=== PATIENT | female | born 1975 | race Caucasian/White ===

== ENCOUNTER 2016-06-11 13:01 | Emergency (ER) | payer SELFPAY ==
[~2016-06-11 13:01] MED LIST: ADVIL PO; AMB10 PO; ANUSOL-HC25 MG RE; ATV1 PO; B COMPLEX-C PO; BEN25 PO; BENADRYL OTC PO; BENTYL10 PO; BENTYL20 PO; CELEXA20 PO; CELEXA40 MG PO; CLARIT10 PO; COLON HEALTH PO; CYMBALTA30 PO; CYMBALTA60 PO; DIFICID 200 MG200 MG PO; DIL2TAB PO; ENDOCET1 TA3 PO; ESTRAVAN PO; ESTROVEN PO; FLORASTOR250 MG PO; HEMOCYTE324 MG PO; LEVSINTAB PO; LEVSINTAB SL; LIPOTRIAD1 CAP PO; LORTAB 5 PO; LYRICA75 PO; MARI5 PO; MOMUD PO; MULTIVITAMI1 PO; NORCO1 TA1 PO; NORCO1 TA2 PO; NORCO1 TAB PO; OXYCOD PO; OXYCON10 PO; PCET PO; PEPTO BISMOL LIQ1 ML PO; PERCOCET1 TA4 PO; PHILLIPS COLON HEALT PO; PR12.5 PO; PR25 PO; PRILO PO; PRILOSEC OTC20 MG PO; PRILOSEC40 MG PO; PROBIOTIC CAP PO; PROBIOTIC CAPSULES PO; PROTONIX PO; QUESLITE PO; SUCR PO; T PO; TYLENOL OTC PO; VANC125UDL PO; VANCOCIN HCL125 MG PO; VANCOCIN HCL250 MG PO; VITAMIN B COMPLEX PO; VITAMIN B PO; VITAMIN B-121000 MC1 SL; VITAMIN D1000 UNI1 PO; VITS; XARELTO15 MG PO; ZANAFLEX 4 MG TA4 MG PO; ZANTAC150 MG PO; ZOCOR20 PO; ZOFRAN ODT4 MG PO; ZOFRAN4 PO; ZOFRAN8 PO; ZOFRANODT8 PO; [UNRECOGNIZED DRUG - OTHER] PO
[2016-06-11 13:18] LABS: ALBUMIN 3.9 G/DL (3.5-5.0); ALKALINE PHOSPHATASE 88 U/L (45-117); CALCIUM, SERUM 9.3 MG/DL (8.5-10.4); CHLORIDE, SERUM 107 MMOL/L (96-112); CO2 (CARBON DIOXIDE) 25 MMOL/L (24-34); CREATININE 0.99 MG/DL (0.55-1.02); GFR AFRICAN AMERICAN 82 ML/MIN (>=60); GFR NON AFRICAN AMERICAN 71 ML/MIN (>=60); GLOBULIN 4.1 G/DL (2.5-4.1); GLUCOSE, SERUM 90 MG/DL (60-99); POTASSIUM, SERUM 4.5 MMOL/L (3.5-5.3); SGOT(AST) 24 U/L (5-40); SGPT(ALT) 22 U/L (5-65); SODIUM, SERUM 139 MMOL/L (135-148); TOTAL BILIRUBIN 0.2 MG/DL (0-1.2)
[2016-06-11 13:20] LABS: BUN (BLOOD UREA NITROGEN) 14 MG/DL (6-23)
[2016-06-11 13:34] LABS: ASCORBIC ACID (UR NOT ORDER) NEG (NEG); BILIRUBIN, URINE NEGATIVE (NEG); ER URINALYSIS TAT 0 Hrs 07 Mins; KETONE, URINE NEGATIVE (NEG); LEUKOCYTE ESTERASE(NOT OR NEG (NEG); NITRITE (URINE) NEG (NEG); WBC (NOT ORDERED) (RFLEX) < 1 (0-5)
[2016-06-11] MEDS ORDERED: SUCR PO (13:36)
[2016-06-11] MEDS ORDERED: PROTONIX PO (13:36)
[2016-06-11] MEDS ORDERED: ZOFRAN8 PO (13:37)
[2016-06-11] MEDS ORDERED: PROBIOTIC PO (13:37)
[2016-06-11] MEDS ORDERED: PR25 PO (13:37)
[2016-06-11] MEDS ORDERED: ATV1 PO (13:38)
[2016-06-11] MEDS ORDERED: NEUR300 PO (13:38)
[2016-06-11] MEDS ORDERED: MACROBID PO (13:39)
[2016-06-11] MEDS ORDERED: BEN25 PO (13:39)
[2016-06-11 15:43] LABS: BASOPHILS 0.2 %; BASOPHILS ABSOLUTE 0.01 10/3/uL (0.0-0.16); EOSINOPHILS 0.8 %; EOSINOPHILS ABSOLUTE 0.05 10/3/uL (0.0-0.53); ER CBC TAT 0 Hrs 05 Mins; HEMATOCRIT 36.3 % (36.0-48.0); HEMOGLOBIN 11.6 g/dL (12.0-16.0); IMMATURE GRANULOCYTES 0.2 %; IMMATURE GRANULOCYTES ABSOLUTE 0.01 10/3/uL (0.0-0.11); LYMPHOCYTES 27.8 %; LYMPHOCYTES ABSOLUTE 1.68 10/3/uL (0.67-4.30); MEAN CORPUSCULAR HEMOGLOB 26.6 pg (26.0-34.0); MEAN CORPUSCULAR VOLUME 83.3 fL (80-100); MEAN PLATELET VOLUME 9.7 fL (9.2-13.0); MONOCYTES 4.8 %; MONOCYTES ABSOLUTE 0.29 10/3/uL (0.21-1.20); NEUTROPHILS 66.2 %; PLATELET COUNT 226 10/3/uL (150-400); RBC DISTRIBUTION WIDTH 14.2 % (12.0-16.0); RED CELL COUNT 4.36 10/6/uL (4.0-5.6)
[2016-06-11 15:50] LABS: MANUAL DIFF NO %
[2016-06-11 15:54] LABS: INTERNATIONAL NORMAL RATI 1.1 UNITS (-); PARTIAL THROMBO TIME 26.9 SEC (22.5-37.2); PROTIME (NOT ORD) 13.7 SEC (12.0-14.5)
[2016-06-11 16:12] LABS: PLATELET ESTIMATE ADQ (ADEQUATE); RBC MORPHOLOGY NORM (NORMAL)
== END 2016-06-11 20:12 | disposition home or self-care (01) ==
LOC: ER 13:01
PROVIDERS: Physician Assistant
DX: K92.2 Gastrointestinal hemorrhage, unspecified (principal); J44.9 Chronic obstructive pulmonary disease, unspecified; I10 Essential (primary) hypertension; K21.9 Gastro-esophageal reflux disease without esophagitis; F41.9 Anxiety disorder, unspecified; Z87.442 Personal history of urinary calculi; F17.200 Nicotine dependence, unspecified, uncomplicated; Z85.51 Personal history of malignant neoplasm of bladder; Z90.710 Acquired absence of both cervix and uterus; Z88.6 Allergy status to analgesic agent; Z88.5 Allergy status to narcotic agent; Z88.8 Allergy status to other drugs, medicaments and biological substances; Z79.899 Other long term (current) drug therapy
CPT/HCPCS: 36415; 74176; 80053; 81001; 83690; 85025; 85610; 85730; 86850; 86900; 86901; 93005; 96365; 96366; 96372; 96375; 96376; 99285; C9113; J1170; J2405; J2550; J2800

== ENCOUNTER 2016-06-12 14:36 | Inpatient (IN) | payer SELFPAY ==
--- NOTE | ~2016-06-12 | HP ---
History And Physical [address] [place]. [address] NAME: MAXINE WARD : [birth year] STATUS : ADM IN [facility]#: [id number] AGE: 40 ADM/REG DATE : 06/12/16 MR#: [id number] REPORT SERV DATE: 06/14/16 DICTATED BY: SHAHEED RUIZ DATE: 06/13/16 REPORT STATUS : Draft TRANSCRIBED BY: MODAletha DATE: 06/13/16 DATE OF ADMISSION: 06/12/2016 REASON FOR ADMISSION: Abdominal pain, intractable nausea and vomiting. HISTORY OF PRESENT ILLNESS: The patient is a 40-year-old female, COPD, peptic ulcer disease, pancreatitis, interstitial lung disease with episodes of C diff in the past requiring stool transplant x3. Presented to the emergency department on 06/12, with nausea, vomiting, and abdominal pain for 3 days. She had regular vomiting that was of the stomach contents followed by bilious emesis followed by streaks of blood now all blood of relatively small volume, but bright in color. She had a previous Laura-Person tear with similar presentation. The patient says her pain in the mid abdomen radiating to her back. It feels like prior episodes of pancreatitis. She has been diagnosed with pancreas divisum in the past. The patient denies any diarrhea, no weight change. No other pain or headache, chest pain. No leg pain or leg swelling. No fever or chills. No other bleeding. Remainder of the review of systems are negative. PAST MEDICAL HISTORY: As mentioned above. History of hysterectomies, salpingo-oophorectomy, cholecystectomy, history of bladder cancer status post BCG therapy, she had a history of deep venous thrombosis. MEDICATIONS: Include, Benadryl, Neurontin, Ativan,Macrobid, Zofran, and Protonix. ALLERGIES: REGLAN, IODINE, AND ASPIRIN. FAMILY HISTORY: Positive for cancer in multiple relatives. SOCIAL HISTORY: The patient is an active smoker. PHYSICAL EXAMINATION: VITAL SIGNS: On presentation, blood pressure 136/67, pulse 97, respiration 18, afebrile, saturating 99.1%. GENERAL: Awake, alert, and oriented x3. HEENT: Dry mucous membranes. Normal oropharynx. NECK: Without jugular venous distention, carotid bruits, lymphadenopathy, or goiter. CARDIAC: Regular rate and rhythm. No murmurs, gallops, or rubs. LUNGS: Clear to auscultation bilaterally. Good excursion. ABDOMEN: Epigastric tenderness. Otherwise, nondistended, nontender, bowel sounds normoactive. GENITOURINARY: There was blood in the emesis bag. EXTREMITIES: No cyanosis, clubbing, or edema. Good pulses and capillary refill. NEUROLOGIC: Normal sensory and motor function in all four extremities. SKIN: Warm and dry. PSYCHIATRIC: She is appropriate. LABORATORY EVALUATIONS: Sodium 141, potassium 4.4, chloride 102, bicarb 20, BUN 14, History And Physical [address] [place]. [address] NAME: MAXINE WARD : [birth year] STATUS : ADM IN [facility]#: [id number] AGE: 40 ADM/REG DATE : 06/12/16 MR#: [id number] REPORT SERV DATE: 06/14/16 DICTATED BY: SHAHEED RUIZ DATE: 06/13/16 REPORT STATUS : Draft TRANSCRIBED BY: MODL DATE: 06/13/16 creatinine 1.0. Glucose 93, white count 7000, . CT of the abdomen was negative. ASSESSMENT/PLAN: 1. Probable acute recurrent pancreatitis with intractable nausea, vomiting, as a result of subsequent a Laura-Person tear. IV fluids, analgesics, proton pump inhibitor, GI will see her regarding an EGD. We will check [place] criteria in 48 hours. 2. COPD with interstitial lung disease. Appears stable. 3. History of bladder cancer appears stable. 4. History of anxiety state also appear stable. RSM/MARUL Shaheed Ruiz M.D. / [id number] CC: Ofelia Barragan DO
--- NOTE | ~2016-06-12 | EGD ---
EGD REPORT [facility] [address] [place]. [address] NAME: ANGELA POWERS : 73 STATUS : ADM IN PAT#: [id number] AGE: 40 ADM/REG DATE : 06/12/16 MR#: [id number] REPORT SERV DATE: 06/13/16 DICTATED BY: ELIA EGAN DATE: 06/13/16 REPORT STATUS : Draft [facility]ANSCRIBED BY: [facility] DATE: 06/13/16 Endoscopy Center Patient Name: Angela Powers Date of : 1975 Attending MD: ELIA EGAN MD Procedure Date No Time: 06/13/2016 Procedure: Upper GI endoscopy Indications: Hematemesis; protonix 40mg bid. Patient Profile: Informed consent was obtained from the patient by me prior to the procedure. Risks, benefits, and alternatives were discussed including the risk of bleeding, perforation, infection, reaction to medicine, missed lesion, and cardiopulmonary complications. Referring MD: EDGAR ORNELAS Medicines: Monitored Anesthesia Care Complications: No immediate complications. Procedure: Pre-Anesthesia Assessment: - ASA Grade Assessment: III - A patient with severe systemic disease. After obtaining informed consent, the endoscope was passed under direct vision. Throughout the procedure, the patient's blood pressure, pulse, and oxygen saturations were monitored continuously. The GIF [id number] was introduced through the mouth, and advanced to the second part of duodenum. The endoscope was withdrawn with careful examination all mucosal surfaces including retroflexion stomach. The upper GI endoscopy was accomplished without difficulty. The patient tolerated the procedure well. Findings: The examined duodenum was normal. Two linear gastric ulcers with no stigmata of bleeding were found in the gastric body. The largest lesion was 10 mm in largest dimension. Biopsies were taken with a cold forceps for histology. Localized mild inflammation was found in the cardia. Biopsies were taken with a cold forceps for histology. The gastric fundus and gastric antrum were normal. The examined esophagus was normal. The esophagus and gastroesophageal junction were examined with white light. There was no visual evidence of Matthews's esophagus. Impression: - Normal examined duodenum. - Gastric ulcers. Biopsied. - Gastritis. Biopsied. EGD REPORT [address] [address] NAME: ANGELA POWERS : [birth year] STATUS : ADM IN PAT#: [id number] AGE: 40 ADM/REG DATE : 06/12/16 MR#: [id number] REPORT SERV DATE: 06/13/16 DICTATED BY: ELIA EGAN DATE: 06/13/16 REPORT STATUS : Draft TRANSCRIBED BY: [employer] DATE: 06/13/16 - Normal gastric fundus and antrum. - Normal esophagus. - There is no endoscopic evidence of Matthews's esophagus. Recommendation: - Regular diet today. - Continue present medications. - Await pathology results. - Check gastrin level. - Advance diet. Procedure Code(s): --- Professional --- 19204, Esophagogastroduodenoscopy, flexible, transoral; with biopsy, single or multiple Diagnosis Code(s): --- Professional --- K25.9, Gastric ulcer, unspecified as acute or chronic, without hemorrhage or perforation K29.70, Gastritis, unspecified, without bleeding K92.0, Hematemesis CPT copyright 2013 [employer]. All rights reserved. The codes documented in this report are preliminary and upon surgical coder review may be revised to meet current compliance requirements. ELIA EGAN MD 06/13/2016 11:50 AM This report has been signed electronically. Number of Addenda: 0 Note Initiated On: 06/13/2016 11:10 AM Scope Withdrawal Time 0 hours 0 minutes 0 seconds [address] [place] [address]
--- NOTE | ~2016-06-12 | CN ---
Consultation Report [facility] [address] [place]. [address] NAME: MAXINE WARD : [birth year] STATUS : ADM IN [facility]#: [id number] AGE: 40 ADM/REG DATE : 06/12/16 MR#: [id number] REPORT SERV DATE: 06/13/16 DICTATED BY: JEFFREY HART DATE: 06/13/16 REPORT STATUS : Draft TRANSCRIBED BY: MODAletha DATE: 06/13/16 GI CONSULT DATE OF CONSULTATION: 06/13/2016 CHIEF COMPLAINT: Hematemesis. HISTORY OF PRESENT ILLNESS: This is a 40-year-old woman who presented to the emergency room with low volume intermittent hematemesis. She started with intermittent epigastric pain about 5 days ago then had numerous episodes of retching without blood, followed by hematemesis as stated above. She has had no melena. She has had normal daily brown bowel movements. No lower abdominal pain. Previous EGD, 06/2015 showed duodenal ulcer and Ashley class A esophagitis. Previous colonoscopy 10/2014 showed rectal ulcerations. No recent NSAIDs. PAST MEDICAL HISTORY: History of C. diff colitis, UTI, thymoma, Langerhans histiocytosis, gastroparesis. ALLERGIES: INCLUDE REGLAN, IV CONTRAST, NSAIDS, TRAMADOL, SERTRALINE. MEDICATIONS: At home include Benadryl, Neurontin, Ativan, Macrobid, Zofran, Protonix 40 mg twice daily, Phenergan, Carafate, probiotic. FAMILY HISTORY: Remarkable for colorectal cancer in numerous second-degree relatives. SOCIAL HISTORY: She does not use alcohol or tobacco significantly. REVIEW OF SYSTEMS: A complete review of systems was obtained and negative except that noted in the history of present illness. PHYSICAL EXAMINATION: VITAL SIGNS: She is currently afebrile. Temperature is 98.6, pulse 80, respirations 17, blood pressure 137/60. EYES: Sclerae anicteric. NECK: Supple without lymphadenopathy. Pharynx is pink without exudate. LUNGS: Clear to auscultation bilaterally. HEART: Regular rate and rhythm. S1 and S2 heard without rubs or gallops. ABDOMEN: Normal bowel sounds. Belly is soft, nontender, nondistended without hepatosplenomegaly. EXTREMITIES: No pedal edema, rash. NEUROLOGIC: Alert and oriented without focal deficit. Muscle exam is nontender. DATA: White blood cell count 7.1, hematocrit initially 37.5, now 30.0, MCV 84.8, platelets Consultation Report [facility] [place]. [address] NAME: MAXINE WARD : [birth year] STATUS : ADM IN PAT#: [id number] AGE: 40 ADM/REG DATE : 06/12/16 MR#: [id number] REPORT SERV DATE: 06/13/16 DICTATED BY: JEFFREY HART DATE: 06/13/16 REPORT STATUS : Draft TRANSCRIBED BY: MODL DATE: 06/13/16 284. INR 1.0. BUN is 14, creatinine 0.97. Liver tests are normal. Amylase and lipase essentially normal. Urinalysis is essentially negative. CT scan of abdomen and pelvis negative except cholecystectomy and hysterectomy. IMPRESSION: 1. Hematemesis following multiple bouts of retching, question Laura-Person tear versus other. 2. Epigastric pain. RECOMMENDATIONS: 1. Continue Protonix. 2. Monitor hematocrit and transfuse as necessary. 3. EGD to follow. CC/JENNIFER Jeffrey Hart M.D. / [id number] CC: Ofelia Barragan DO
--- NOTE | ~2016-06-12 | DS ---
Discharge Summary [address] [place]. [address] NAME: MAXINE WARD : [birth year] STATUS : DIS IN PAT#: [id number] AGE: 40 ADM/REG DATE : 06/12/16 MR#: [id number] REPORT SERV DATE: 06/15/16 DICTATED BY: JIMMY RUIZ DATE: 06/14/16 REPORT STATUS : Draft TRANSCRIBED BY: MODL DATE: 06/14/16 ADMISSION DATE: 06/12/2016 DISCHARGE DATE: 06/14/2016 PRINCIPAL DIAGNOSES: 1. Peptic ulcer disease. 2. Upper gastrointestinal bleed. 3. Epigastric pain. HISTORY OF PRESENT ILLNESS: Please see my dictation on 06/12/2016. HOSPITAL COURSE: Admitted with small volume hematemesis with epigastric tenderness radiating to her back. Hematocrits were unchanged. There was a concern about possibly recurrent pancreatitis that she has had episodes before, this felt similar; however, lipase was negative. She was hydrated, and received a Protonix drip. GI was consulted. EGD had revealed shallow gastric ulcers. Biopsies were negative for neoplasm or H-pylori. Gastrin level was sent, but would be at some period of time before it came back. The patient was actually feeling better. Her diet was advanced. Tenderness had been relieved. Her Dilaudid was changed to p.o. 2 mg q.4 p.r.n. Carafate and Protonix were given as well. She will follow up with Dr. Naseem Starkey, her primary provider, as an outpatient, and Dr. Hart in two to four weeks. Otherwise, diet is GI soft. Activity as tolerated. VON/JENNIFER Jimmy Ruiz M.D. / [id number] CC: Ofelia Barragan DO Chad Charapata, M.D.
[2016-06-12 13:22] LABS: BASOPHILS 0.1 %; BASOPHILS ABSOLUTE 0.01 10/3/uL (0.0-0.16); EOSINOPHILS 0.9 %; EOSINOPHILS ABSOLUTE 0.06 10/3/uL (0.0-0.53); HEMATOCRIT 37.5 % (36.0-48.0); HEMOGLOBIN 12.3 g/dL (12.0-16.0); IMMATURE GRANULOCYTES 0.1 %; IMMATURE GRANULOCYTES ABSOLUTE 0.01 10/3/uL (0.0-0.11); LYMPHOCYTES 23.4 %; LYMPHOCYTES ABSOLUTE 1.65 10/3/uL (0.67-4.30); MANUAL DIFF NO %; MEAN CORPUS HGB CONC 32.8 g/dL (32.0-36.0); MEAN CORPUSCULAR HEMOGLOB 27.8 pg (26.0-34.0); MEAN CORPUSCULAR VOLUME 84.8 fL (80-100); MEAN PLATELET VOLUME 9.3 fL (9.2-13.0); MONOCYTES 6.1 %; MONOCYTES ABSOLUTE 0.43 10/3/uL (0.21-1.20); NEUTROPHILS 69.4 %; NEUTROPHILS ABSOLUTE 4.89 10/3/uL (2.02-8.40); PLATELET COUNT 284 10/3/uL (150-400); RBC DISTRIBUTION WIDTH 13.9 % (12.0-16.0); RED CELL COUNT 4.42 10/6/uL (4.0-5.6); WHITE BLOOD CELLS 7.1 10/3/uL (4.5-10.5)
[2016-06-12 13:23] LABS: ASCORBIC ACID (UR NOT ORDER) NEG (NEG); BILIRUBIN, URINE NEGATIVE (NEG); ER URINALYSIS TAT 0 Hrs 11 Mins; KETONE, URINE NEGATIVE (NEG); NITRITE (URINE) NEG (NEG); WBC (NOT ORDERED) (RFLEX) 1 (0-5)
[2016-06-12 13:28] LABS: LEUKOCYTE ESTERASE(NOT OR TRACE (NEG)
[2016-06-12 13:38] LABS: ALBUMIN 3.9 G/DL (3.5-5.0); ALKALINE PHOSPHATASE 84 U/L (45-117); BUN (BLOOD UREA NITROGEN) 14 MG/DL (6-23); CALCIUM, SERUM 9.4 MG/DL (8.5-10.4); CHLORIDE, SERUM 107 MMOL/L (96-112); CO2 (CARBON DIOXIDE) 28 MMOL/L (24-34); CREATININE 0.97 MG/DL (0.55-1.02); GFR AFRICAN AMERICAN 84 ML/MIN (>=60); GFR NON AFRICAN AMERICAN 73 ML/MIN (>=60); GLOBULIN 4.1 G/DL (2.5-4.1); GLUCOSE, SERUM 93 MG/DL (60-99); POTASSIUM, SERUM 4.4 MMOL/L (3.5-5.3); SGOT(AST) 23 U/L (5-40); SGPT(ALT) 25 U/L (5-65); SODIUM, SERUM 141 MMOL/L (135-148); TOTAL BILIRUBIN 0.3 MG/DL (0-1.2)
[~2016-06-12 14:36] MED LIST changes: +MACROBID PO; +NEUR300 PO; +PROBIOTIC PO
[2016-06-12 14:50] LABS: PARTIAL THROMBO TIME 28.8 SEC (22.5-37.2); PROTIME (NOT ORD) 13.1 SEC (12.0-14.5)
[2016-06-12 19:43] LABS: HEMATOCRIT 36.9 % (36.0-48.0); HEMOGLOBIN 11.7 g/dL (12.0-16.0)
[2016-06-13 01:37] LABS: HEMOGLOBIN 9.8 g/dL (12.0-16.0)
[2016-06-13 08:02] LABS: BASOPHILS 0.2 %; BASOPHILS ABSOLUTE 0.01 10/3/uL (0.0-0.16); EOSINOPHILS 3.3 %; EOSINOPHILS ABSOLUTE 0.14 10/3/uL (0.0-0.53); HEMOGLOBIN 11.1 g/dL (12.0-16.0); IMMATURE GRANULOCYTES 0.2 %; IMMATURE GRANULOCYTES ABSOLUTE 0.01 10/3/uL (0.0-0.11); LYMPHOCYTES 48.7 %; LYMPHOCYTES ABSOLUTE 2.09 10/3/uL (0.67-4.30); MEAN CORPUS HGB CONC 33.2 g/dL (32.0-36.0); MEAN CORPUSCULAR VOLUME 84.3 fL (80-100); MEAN PLATELET VOLUME 9.9 fL (9.2-13.0); MONOCYTES 8.6 %; MONOCYTES ABSOLUTE 0.37 10/3/uL (0.21-1.20); NEUTROPHILS ABSOLUTE 1.67 10/3/uL (2.02-8.40); PLATELET COUNT 211 10/3/uL (150-400); RBC DISTRIBUTION WIDTH 13.8 % (12.0-16.0); RED CELL COUNT 3.96 10/6/uL (4.0-5.6); WHITE BLOOD CELLS 4.3 10/3/uL (4.5-10.5)
[2016-06-13 08:03] LABS: HEMATOCRIT 33.4 % (36.0-48.0)
[2016-06-13 08:06] LABS: MANUAL DIFF NO %
[2016-06-13 08:16] LABS: A/G RATIO 0.9 (0.7-1.9); ALBUMIN 3.2 G/DL (3.5-5.0); CALCIUM, SERUM 8.6 MG/DL (8.5-10.4); CHLORIDE, SERUM 113 MMOL/L (96-112); CO2 (CARBON DIOXIDE) 24 MMOL/L (24-34); CREATININE 0.95 MG/DL (0.55-1.02); GFR AFRICAN AMERICAN 86 ML/MIN (>=60); GFR NON AFRICAN AMERICAN 74 ML/MIN (>=60); GLOBULIN 3.4 G/DL (2.5-4.1); GLUCOSE, SERUM 83 MG/DL (60-99); SGOT(AST) 25 U/L (5-40); SGPT(ALT) 22 U/L (5-65); SODIUM, SERUM 145 MMOL/L (135-148); TOTAL BILIRUBIN 0.4 MG/DL (0-1.2); TOTAL PROTEIN 6.6 G/DL (6.0-8.5)
[2016-06-13 08:18] LABS: ALKALINE PHOSPHATASE 67 U/L (45-117); BUN (BLOOD UREA NITROGEN) 9 MG/DL (6-23)
[2016-06-13 08:43] LABS: PLATELET ESTIMATE ADQ (ADEQUATE); RBC MORPHOLOGY NORM (NORMAL)
[2016-06-13 13:27] LABS: HEMATOCRIT 34.4 % (36.0-48.0); HEMOGLOBIN 11.3 g/dL (12.0-16.0)
[2016-06-14 05:47] LABS: BASOPHILS 0.2 %; BASOPHILS ABSOLUTE 0.01 10/3/uL (0.0-0.16); EOSINOPHILS 2.7 %; EOSINOPHILS ABSOLUTE 0.12 10/3/uL (0.0-0.53); HEMATOCRIT 31.8 % (36.0-48.0); HEMOGLOBIN 10.3 g/dL (12.0-16.0); IMMATURE GRANULOCYTES 0.2 %; IMMATURE GRANULOCYTES ABSOLUTE 0.01 10/3/uL (0.0-0.11); LYMPHOCYTES 31.2 %; LYMPHOCYTES ABSOLUTE 1.38 10/3/uL (0.67-4.30); MEAN CORPUS HGB CONC 32.4 g/dL (32.0-36.0); MEAN CORPUSCULAR HEMOGLOB 27.1 pg (26.0-34.0); MEAN CORPUSCULAR VOLUME 83.7 fL (80-100); MEAN PLATELET VOLUME 10.2 fL (9.2-13.0); MONOCYTES 9.5 %; MONOCYTES ABSOLUTE 0.42 10/3/uL (0.21-1.20); NEUTROPHILS 56.2 %; NEUTROPHILS ABSOLUTE 2.48 10/3/uL (2.02-8.40); PLATELET COUNT 230 10/3/uL (150-400); WHITE BLOOD CELLS 4.4 10/3/uL (4.5-10.5)
[2016-06-14 05:49] LABS: MANUAL DIFF NO %
[2016-06-14 05:54] LABS: BUN (BLOOD UREA NITROGEN) 10 MG/DL (6-23); CALCIUM, SERUM 8.9 MG/DL (8.5-10.4); CHLORIDE, SERUM 108 MMOL/L (96-112); CO2 (CARBON DIOXIDE) 26 MMOL/L (24-34); CREATININE 1.15 MG/DL (0.55-1.02); GFR AFRICAN AMERICAN 68 ML/MIN (>=60); GFR NON AFRICAN AMERICAN 59 ML/MIN (>=60); GLUCOSE, SERUM 99 MG/DL (60-99); IRON, SERUM 44 MCG/DL (35-150); POTASSIUM, SERUM 4.2 MMOL/L (3.5-5.3); SODIUM, SERUM 143 MMOL/L (135-148)
[2016-06-14 05:55] LABS: % IRON SAT 12 % (20-50); FERRITIN 11 NG/ML (8-252); IRON BINDING CAPACITY 368 MCG/DL (225-410)
[2016-06-14] MEDS ORDERED: MARI5 PO (11:17)
[2016-06-14] MEDS ORDERED: DIL2TAB PO (11:17)
== END 2016-06-14 15:06 | disposition home or self-care (01) | DRG 378 ==
LOC: ER 14:36 → 4SO 16:55
PROVIDERS: Emergency Medicine; Internal Medicine; Internal Medicine Gastroenterology; Physician Assistant
PROC: 0DB68ZX Excision of Stomach, Via Natural or Artificial Opening Endoscopic, Diagnostic (ICD-10-PCS; principal; 2016-06-13 11:41)
DX: K27.4 Chronic or unspecified peptic ulcer, site unspecified, with hemorrhage (principal); J84.9 Interstitial pulmonary disease, unspecified; J44.9 Chronic obstructive pulmonary disease, unspecified; F41.9 Anxiety disorder, unspecified; F17.210 Nicotine dependence, cigarettes, uncomplicated; K92.2 Gastrointestinal hemorrhage, unspecified; K29.70 Gastritis, unspecified, without bleeding; K31.84 Gastroparesis; Z80.0 Family history of malignant neoplasm of digestive organs; Z88.6 Allergy status to analgesic agent; Z88.8 Allergy status to other drugs, medicaments and biological substances; Z85.51 Personal history of malignant neoplasm of bladder; Z98.890 Other specified postprocedural states; Z85.238 Personal history of other malignant neoplasm of thymus
CPT/HCPCS: 36415; 80048; 80053; 81001; 82150; 82728; 82941; 83540; 83550; 83615; 83690; 83735; 85014; 85018; 85025; 85610; 85730; 86850; 86900; 86901; 88305; 88342; 99285; A9270-GY; C9113; J1170; J2405; J2550

== ENCOUNTER 2016-06-25 16:14 | Observation (INO) | payer SELFPAY ==
--- NOTE | ~2016-06-25 | HP ---
History And Physical [place] [address] [facility] [place]. [address] NAME: MAXINE WARD : [birth year] STATUS : REG ER PAT#: [id number] AGE: 40 ADM/REG DATE : 06/25/16 MR#: [id number] REPORT SERV DATE: 06/25/16 DICTATED BY: ERIC VILLEGAS DATE: 06/25/16 REPORT STATUS : Draft TRANSCRIBED BY: MODAletha DATE: 06/25/16 DATE OF ADMISSION: 06/25/2016 CHIEF COMPLAINT: Abdominal pain with repeated episodes of hematemesis and now GI bleed with history of Laura-Person tear. HISTORY OF PRESENT ILLNESS: The patient is a very pleasant 40-year-old female who has had unfortunate but complex GI history including Laura-Person tears, C. diff colitis, pancreatitis, ulcers, followed under the care of Dr. Hart who had just recently been discharged for similar episodes, was doing fair, but this week was noted to have increasing nausea and vomiting and began vomiting blood but also started noting blood and dark stools. She was recently diagnosed with an ulcer and has been taking both Protonix and omeprazole as scheduled although she has had increased vomiting. Symptoms have been constant over the last few days but bleeding has been since yesterday, moderate severity with dull deep pain nonradiating associated with nausea, vomiting, and chills but no fever. No shortness of breath but generalized weakness. No diarrhea but does have dark stools. Symptoms are worsened by palpation and no relieving symptoms. The patient reports that in the past, she has required Dilaudid IV for pain control and p.o. Dilaudid which actually helps better than the IV form and symptoms typically start to greatly improved after having the Protonix drip IV. ADDITIONAL REVIEW OF SYSTEMS: GENERAL: Positive for chills but no fevers. EYES: No visual pain or changes. ENT: No ear pain or congestion. NEUROLOGIC: No headache or confusion. SKIN: No rashes or bruising. RESPIRATORY: No shortness of breath or cough. CV: No chest pain or palpitations. GI: Positive for nausea, vomiting, dark stools, hematemesis, and abdominal pain. : No dysuria or hematuria. MUSCULOSKELETAL: No myalgias or arthralgias. ENDOCRINE: Does have increased fatigue, but no polyuria. HEMATOLOGIC: No additional bleeding or bruising except from GI sources. IMMUNOLOGIC: No rhinorrhea. PSYCHIATRIC: No anxiety or confusion but does generally feel weak and tired of recurrent episodes. PAST MEDICAL HISTORY: COPD; hypertension; pain; irritable bowel syndrome; anxiety; chronic pancreatitis with history of pancreatic divisum; nephrolithiasis; peptic ulcer disease; esophageal ulcer; Laura-Person tear followed by Dr. Hart; bladder cancer status post BCG treatment [address] Macario; left upper extremity DVT; Langerhans histiocytosis; pulmonary nodules with pulmonary fibrosis; chronic interstitial lung disease followed by Dr. Peters; C. diff colitis with recurrence; history of fecal transplant; B12 deficiency; Klebsiella bacteremia; UTIs; and endometriosis. SURGICAL HISTORY: Thymoma; hysterectomy; oophorectomy; cholecystectomy; adhesiolysis; back History And Physical [address] [address] NAME: MAXINE WARD : [birth year] STATUS : REG ER PAT#: [id number] AGE: 40 ADM/REG DATE : 06/25/16 MR#: [id number] REPORT SERV DATE: 06/25/16 DICTATED BY: ERIC VILLEGAS DATE: 06/25/16 REPORT STATUS : Draft TRANSCRIBED BY: MODL DATE: 06/25/16 surgery; and right upper lung nodule surgery. ALLERGIES: REGLAN, IV CONTRAST, NSAIDS, TRAMADOL, ZOLOFT, AND ASPIRIN. SOCIAL HISTORY: Lives in [place]. Rare alcohol or illicits. Accompanied by mother who is at bedside. 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 Does have smoking history. FAMILY HISTORY: Colon cancer, bladder cancer, heart disease, and diabetes. CURRENT MEDICATIONS: Complete list still pending. PHYSICAL EXAMINATION: VITAL SIGNS: The patient's blood pressure is 112/65, temperature 98.6, pulse 102 down to 79, respirations 16, and O2 sats 100%. GENERAL: No acute distress but does look fairly fatigued, well developed, well nourished. EYES: No scleral icterus. EOMI. Pale conjunctivae. ENT: Nares patent. Tongue midline. Moist mucous membranes. RESPIRATORY: Clear to auscultation. No wheezes. CV: Regular rate. No rubs or gallops. No pedal edema. GI: Soft. Mild tenderness to palpation in mid epigastric. : Deferred. MUSCULOSKELETAL: Moves all extremities x4. SKIN: Warm, dry. LYMPH: No cervical or supraclavicular lymphadenopathy. HEME: No bleeding or bruising. NEUROLOGIC: Alert and oriented. Moves all extremities x4 but does look fairly weak and tired. PSYCHIATRIC: Appropriate mood and affect, pleasant. LAB DATA: Portable chest, no acute cardiopulmonary symptoms. BMP grossly within normal limits with mildly low bicarb at 21. Troponin negative. Lipase 297. Magnesium 2.3. Urinalysis, trace ketones, but negative leukocyte esterase and nitrites. WBC 5.8, H and H 11.8 and 36.5, and platelets 268. INR 1.0. ASSESSMENT: 1. Abdominal pain with symptomatic peptic ulcer disease. 2. Chronic obstructive pulmonary disease history. 3. Tachycardia. 4. Hematemesis with history of Laura-Person tear and ulcers. PLAN: 1. For abdominal pain with symptomatic peptic ulcer disease, PPI drip and pain control. Has had extensive workup in the past including gastrin levels, will add warfarin levels for additional completion of differential and we will ask GI for further evaluation in the presence of hematemesis and dark stools. 2. COPD. O2 and DuoNebs as needed. 3. Tachycardia. Treat underlying abdominal pain, IV fluids gently as the patient has had History And Physical [address] [address] NAME: MAXINE WARD : [birth year] STATUS : REG ER PAT#: [id number] AGE: 40 ADM/REG DATE : 06/25/16 MR#: [id number] REPORT SERV DATE: 06/25/16 DICTATED BY: ERIC VILLEGAS DATE: 06/25/16 REPORT STATUS : Draft TRANSCRIBED BY: MODL DATE: 06/25/16 decreased p.o. intake. 4. Hematemesis with Laura-Person tear. Check H and H serially. PPI drip. Hold PRBCs in case of transfusion requirements. All questions answered to the patient and mother at bedside. DDN/MODL Eric Villegas MD / [id number] CC: Naseem Starkey DO
--- NOTE | ~2016-06-25 | DS ---
Discharge Summary [facility] [address] [facility]. [address] NAME: MAXINE WARD : [birth year] STATUS : DIS [facility] PAT#: [id number] AGE: 40 ADM/REG DATE : 06/25/16 MR#: [id number] REPORT SERV DATE: 06/27/16 DICTATED BY: JORGE JORDAN DATE: 06/27/16 REPORT STATUS : Draft TRANSCRIBED BY: MODL DATE: 06/27/16 ADMISSION DATE: 06/25/2016 DISCHARGE DATE: 06/27/2016 DISCHARGE DIAGNOSES: 1. Reported hematemesis and melena with a normal esophagogastroduodenoscopy. 2. History of peptic ulcer disease and gastrointestinal bleeds. 3. Abdominal pain, with baseline chronic pain, on oral Dilaudid as an outpatient. 4. Chronic obstructive pulmonary disease. 5. Seeking behaviors. CONSULTS: GI. PROCEDURE: EGD on 06/26/2016, that was essentially negative. HOSPITAL COURSE: This is a 40-year-old lady with history of peptic ulcer disease and GI bleed who presented to the hospital with complaints of hematemesis and melena. The patient was admitted and GI consultation was requested. The patient had an EGD done which was essentially negative. Throughout the hospital stay, the patient remained hemodynamically stable. The patient was admitted with hemoglobin of 12 which had declined to 10 after IV fluids and it remained stable at 10. The patient is now being discharged home with close outpatient followup instructions. Of note, the patient does have chronic pain syndrome and she takes p.o. Dilaudid at home. The patient did exhibit some pain seeking behaviors, hence for expedited discharge as soon as it is felt safe to do so. DISCHARGE MEDICATIONS: No changes. DISPOSITION: Home. FOLLOWUP: Please follow up with PCP in the next one to two weeks. Total of 20 minutes spent in coordinating this patient's discharge today. DAYNE/JENNIFER Jorge Jordan MD / [id number] CC: Jorge Jordan MD
--- NOTE | ~2016-06-25 | CN ---
Consultation Report [facility] [address] [place]. [address] NAME: MAXINE POWERS : 73 STATUS : [facility] PAT#: [id number] AGE: 40 ADM/REG DATE : 06/25/16 MR#: [id number] REPORT SERV DATE: 06/26/16 DICTATED BY: ANUP HERRING DATE: 06/26/16 REPORT STATUS : Draft TRANSCRIBED BY: MODL DATE: 06/26/16 GI CONSULTATION DATE OF CONSULTATION: 06/26/2016 REASON FOR CONSULTATION: Evaluation and management of upper GI bleeding. HISTORY OF PRESENT ILLNESS: Ms. Powers is a 40-year-old female patient, known to our group, who presented on 06/25 with a chief complaint of epigastric abdominal pain, nausea, vomiting, hematemesis, as well as diarrhea. She has a history of recently being seen by Dr. Hart on 06/13/2016 secondary to hematemesis, subsequently undergoing EGD with him on that same day. Findings on that exam showed normal duodenum, gastric ulcers which were biopsied, gastritis which was biopsied, normal gastric fundus and antrum, normal esophagus, no endoscopic evidence of Matthews's. He ordered a gastrin level. She was subsequently discharged on 06/14/2016. Pathology from 06/13 showed the gastric biopsy, antral and fundic mucosa with erosion, no metaplasia or dysplasia, H pylori negative, gastric cardia and fundic mucosa was within normal limits, no H pylori was seen on that exam. Her gastrin level was normal at 80. She states that this past Wednesday, she began to have a recurrence of epigastric abdominal pain. She tried to decrease her diet at home, thinking that this might help; however, it progressively worsened. She began to have nausea with vomiting. She began to vomit up blood yesterday, which she describes as faby blood. She stated that she had not had dark stools up until today. She has been having diarrhea and has a history of recurrent C diff colitis, having undergone fecal transplants. She states that she was recently treated about four weeks ago for C diff by her primary care physician. She still endorses epigastric abdominal pain and discomfort. Hemoglobin on admission 11.8, she has dropped to 9.8. I have discussed with her we will plan on pursuing EGD today with Dr. Berry. Risks, benefits, alternatives, and complications were detailed for her to include, but not limited to risk of bleeding, perforation, infection, reaction to medications as well as cardiac and pulmonary side effects. She is agreeable to proceed. PAST MEDICAL HISTORY: Positive for recurrent C diff UTI; thymoma; Langerhans histiocytosis; gastroparesis; recurrent GI bleeding; Laura-Person tear; gastric ulcers; pancreatitis with history of pancreatic divisum; nephrolithiasis; bladder cancer, status post BCG treatment in 2011; left upper extremity DVT; pulmonary nodules with pulmonary fibrosis; chronic interstitial lung disease; B12 deficiency; Klebsiella bacteremia UTI; endometriosis. PAST SURGICAL HISTORY: Thymoma, hysterectomy, oophorectomy, cholecystectomy, adhesiolysis, back surgery, right upper lung nodule surgery. SOCIAL HISTORY: Lives independently. Social alcohol. Denies illicits. 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 Positive tobacco. FAMILY HISTORY: Colon cancer, bladder cancer, heart disease, and diabetes. Consultation Report [address] [address] NAME: MAXINE POWERS : 73 STATUS : [facility] PAT#: [id number] AGE: 40 ADM/REG DATE : 06/25/16 MR#: [id number] REPORT SERV DATE: 06/26/16 DICTATED BY: ANUP HERRING DATE: 06/26/16 REPORT STATUS : Draft TRANSCRIBED BY: JENNIFER DATE: 06/26/16 ALLERGIES: REGLAN, IV CONTRAST, NSAIDS, TRAMADOL, ZOLOFT, AND ASPIRIN. HOME MEDICATIONS: Benadryl, Marinol, Neurontin, Dilaudid, Ativan, probiotic, Zofran, Protonix, Phenergan, and Carafate. REVIEW OF SYSTEMS: A 10-point review of systems has been obtained with pertinent positives being addressed in the history of present illness. PERTINENT LABORATORY DATA: Sodium 144, potassium 3.8, BUN is 11, creatinine is 0.84. White count 5.1, hemoglobin 9.8, hematocrit 31.2, platelet count 234. INR is 1. PHYSICAL EXAMINATION: VITAL SIGNS: Temperature 98.3, pulse 78, respirations 16, and blood pressure 123/60. NEURO: Reveals an alert female, resting in bed with no focal deficits. GENERAL: Cooperative, in no apparent distress. She is awake. She is alert. She is oriented x3. HEAD, EARS, EYES, NOSE, AND THROAT: Anicteric. Pupils equal, round, reactive to light and accommodation. Normocephalic and atraumatic. NECK: No JVD. No palpable nodes. LUNGS: Clear anteriorly with normal respiratory effort exhibited. Equal expansion. CARDIOVASCULAR SYSTEM: Regular rate and rhythm. S1 and S2. No murmurs, rubs, gallops, S3, or S4 appreciated. ABDOMEN: Soft, nondistended, mildly tender to palpation in the epigastric region. However, no rebound or guarding elicited on exam. No organomegaly appreciated. EXTREMITIES: No edema. Normal distal pulses. SKIN: Warm, dry, and intact. ASSESSMENT: 1. Upper GI bleed with hematemesis, recent gastric ulcers on EGD on 06/13/2016. She has a history of Laura-Person tear in the past. 2. History of recurrent Clostridium difficile, now with diarrhea. 3. Epigastric abdominal pain. PLAN: 1. Protonix drip continuation. 2. EGD today with Dr. Berry. 3. Check stool for C diff. We will follow. DG/MODL [facility]man Consultation Report [address] [place]. [address] NAME: MAXINE POWERS : 73 STATUS : [facility] PAT#: [id number] AGE: 40 ADM/REG DATE : 06/25/16 MR#: [id number] REPORT SERV DATE: 06/26/16 DICTATED BY: ANUP HERRING DATE: 06/26/16 REPORT STATUS : Draft TRANSCRIBED BY: MODAletha DATE: 06/26/16 MATILDE Berman / [id number] CC: MD Naseem Will DO
--- NOTE | ~2016-06-25 | EGD ---
EGD REPORT [facility] [address] [place]. [address] NAME: ANGELA POWERS : 73 STATUS : [facility] PAT#: [id number] AGE: 40 ADM/REG DATE : 06/25/16 MR#: [id number] REPORT SERV DATE: 06/26/16 DICTATED BY: SATHISH OCONNOR DATE: 06/26/16 REPORT STATUS : Draft TRANSCRIBED BY: IATJANE [facility] DATE: 06/26/16 Endoscopy Center Patient Name: Angela Powers Date of : 1975 Attending MD: SATHISH OCONNOR MD Procedure Date No Time: 06/26/2016 Procedure: Upper GI endoscopy Indications: Hematemesis Referring MD: Naseem Starkey Medicines: Monitored Anesthesia Care Complications: No immediate complications. Estimated blood loss: None. Procedure: After obtaining informed consent, the endoscope was passed under direct vision. Throughout the procedure, the patient's blood pressure, pulse, and oxygen saturations were monitored continuously. The GIF [id number] was introduced through the mouth, and advanced to the second part of duodenum. The upper GI endoscopy was accomplished without difficulty. The patient tolerated the procedure well. Findings: The examined esophagus was normal. A few dispersed, small non-bleeding erosions were found in the gastric antrum. The examined duodenum was normal. The cardia and gastric fundus were normal on retroflexion. The exam was otherwise without abnormality. Impression: - Non-bleeding erosive gastropathy. - The examination was otherwise normal. - No suggestion of blood or recent bleeding Recommendation: - Return patient to hospital ware for observation. - Clear liquid diet. - Use Protonix (pantoprazole) 40 mg PO BID. - Use sucralfate tablets 1 gram PO QID. - Check hemoglobin q 12 hours until stable. Procedure Code(s): --- Professional --- 53656, Esophagogastroduodenoscopy, flexible, transoral; diagnostic, including collection of specimen(s) by brushing or washing, when performed (separate procedure) Diagnosis Code(s): --- Professional --- K31.9, Disease of stomach and duodenum, unspecified EGD REPORT [address] [address] NAME: ANGELA POWERS : 73 STATUS : [facility] PAT#: [id number] AGE: 40 ADM/REG DATE : 06/25/16 MR#: [id number] REPORT SERV DATE: 06/26/16 DICTATED BY: SATHISH OCONNOR DATE: 06/26/16 REPORT STATUS : Draft TRANSCRIBED BY: [employer] DATE: 06/26/16 K92.0, Hematemesis CPT copyright 2013 [employer]. All rights reserved. The codes documented in this report are preliminary and upon political research scientist review may be revised to meet current compliance requirements. Sathish Oconnor MD SATHISH OCONNOR MD 06/26/2016 11:50 AM This report has been signed electronically. Number of Addenda: 0 Note Initiated On: 06/26/2016 11:30 AM Scope Withdrawal Time 0 hours 0 minutes 0 seconds
[2016-06-25 14:33] LABS: BUN (BLOOD UREA NITROGEN) 17 MG/DL (6-23); CALCIUM, SERUM 9.1 MG/DL (8.5-10.4); CHEST PAIN PROFILE TAT 0 Hrs 21 Mins; CHLORIDE, SERUM 112 MMOL/L (96-112); CO2 (CARBON DIOXIDE) 21 MMOL/L (24-34); CREATININE 0.96 MG/DL (0.55-1.02); GFR AFRICAN AMERICAN 85 ML/MIN (>=60); GFR NON AFRICAN AMERICAN 73 ML/MIN (>=60); GLUCOSE, SERUM 94 MG/DL (60-99); POTASSIUM, SERUM 3.9 MMOL/L (3.5-5.3); SODIUM, SERUM 142 MMOL/L (135-148); TROPONIN I <0.02 NG/ML (<0.05)
[2016-06-25 14:43] LABS: ASCORBIC ACID (UR NOT ORDER) NEG (NEG); BILIRUBIN, URINE NEGATIVE (NEG); ER URINALYSIS TAT 0 Hrs 10 Mins; KETONE, URINE TRACE MG/DL (NEG); LEUKOCYTE ESTERASE(NOT OR NEG (NEG); NITRITE (URINE) NEG (NEG); WBC (NOT ORDERED) (RFLEX) 1 (0-5)
[2016-06-25 15:01] LABS: BASOPHILS 0.2 %; BASOPHILS ABSOLUTE 0.01 10/3/uL (0.0-0.16); EOSINOPHILS ABSOLUTE 0.06 10/3/uL (0.0-0.53); ER CBC TAT 0 Hrs 12 Mins; HEMOGLOBIN 11.8 g/dL (12.0-16.0); IMMATURE GRANULOCYTES 0.2 %; IMMATURE GRANULOCYTES ABSOLUTE 0.01 10/3/uL (0.0-0.11); LYMPHOCYTES 25.4 %; LYMPHOCYTES ABSOLUTE 1.47 10/3/uL (0.67-4.30); MEAN CORPUS HGB CONC 32.3 g/dL (32.0-36.0); MEAN CORPUSCULAR HEMOGLOB 26.7 pg (26.0-34.0); MEAN CORPUSCULAR VOLUME 82.6 fL (80-100); MEAN PLATELET VOLUME 9.2 fL (9.2-13.0); MONOCYTES 7.3 %; MONOCYTES ABSOLUTE 0.42 10/3/uL (0.21-1.20); NEUTROPHILS 65.9 %; NEUTROPHILS ABSOLUTE 3.81 10/3/uL (2.02-8.40); PLATELET COUNT 268 10/3/uL (150-400); RBC DISTRIBUTION WIDTH 13.4 % (12.0-16.0); RED CELL COUNT 4.42 10/6/uL (4.0-5.6); WHITE BLOOD CELLS 5.8 10/3/uL (4.5-10.5)
[2016-06-25 15:03] LABS: HEMATOCRIT 36.5 % (36.0-48.0); MANUAL DIFF NO %
[2016-06-25 15:54] LABS: PARTIAL THROMBO TIME 23.8 SEC (22.5-37.2); PROTIME (NOT ORD) 12.9 SEC (12.0-14.5)
[2016-06-25 23:10] LABS: HEMATOCRIT 30.4 % (36.0-48.0); HEMOGLOBIN 9.9 g/dL (12.0-16.0)
[2016-06-26 07:09] LABS: BUN (BLOOD UREA NITROGEN) 11 MG/DL (6-23); CALCIUM, SERUM 8.5 MG/DL (8.5-10.4); CHLORIDE, SERUM 113 MMOL/L (96-112); CO2 (CARBON DIOXIDE) 22 MMOL/L (24-34); CREATININE 0.84 MG/DL (0.55-1.02); GFR AFRICAN AMERICAN 100 ML/MIN (>=60); GFR NON AFRICAN AMERICAN 86 ML/MIN (>=60); GLUCOSE, SERUM 84 MG/DL (60-99); POTASSIUM, SERUM 3.8 MMOL/L (3.5-5.3); SODIUM, SERUM 144 MMOL/L (135-148)
[2016-06-26 09:34] LABS: BASOPHILS 0.4 %; BASOPHILS ABSOLUTE 0.02 10/3/uL (0.0-0.16); EOSINOPHILS 2.5 %; EOSINOPHILS ABSOLUTE 0.13 10/3/uL (0.0-0.53); HEMATOCRIT 31.2 % (36.0-48.0); HEMOGLOBIN 9.8 g/dL (12.0-16.0); IMMATURE GRANULOCYTES 0.2 %; IMMATURE GRANULOCYTES ABSOLUTE 0.01 10/3/uL (0.0-0.11); LYMPHOCYTES 34.2 %; LYMPHOCYTES ABSOLUTE 1.75 10/3/uL (0.67-4.30); MEAN CORPUS HGB CONC 31.4 g/dL (32.0-36.0); MEAN CORPUSCULAR HEMOGLOB 26.6 pg (26.0-34.0); MEAN CORPUSCULAR VOLUME 84.8 fL (80-100); MEAN PLATELET VOLUME 9.1 fL (9.2-13.0); MONOCYTES 10.5 %; MONOCYTES ABSOLUTE 0.54 10/3/uL (0.21-1.20); NEUTROPHILS 52.2 %; NEUTROPHILS ABSOLUTE 2.67 10/3/uL (2.02-8.40); PLATELET COUNT 234 10/3/uL (150-400); RBC DISTRIBUTION WIDTH 13.5 % (12.0-16.0); RED CELL COUNT 3.68 10/6/uL (4.0-5.6); WHITE BLOOD CELLS 5.1 10/3/uL (4.5-10.5)
[2016-06-26 09:35] LABS: MANUAL DIFF NO %
[2016-06-26 19:10] LABS: HEMATOCRIT 29.3 % (36.0-48.0); HEMOGLOBIN 9.8 g/dL (12.0-16.0)
[2016-06-27 08:39] LABS: HEMATOCRIT 27.5 % (36.0-48.0); HEMOGLOBIN 9.1 g/dL (12.0-16.0)
[2016-06-27] MEDS ORDERED: IFEREX 150 PO (11:15)
== END 2016-06-27 14:28 | disposition home or self-care (01) ==
LOC: ER 16:14 → 4SO 20:46
PROVIDERS: Emergency Medicine; Internal Medicine Gastroenterology; Student in an Organized Health Care Education/Training Program
PROC: 0DJ08ZZ Inspection of Upper Intestinal Tract, Via Natural or Artificial Opening Endoscopic (ICD-10-PCS; principal; 2016-06-25)
DX: K31.9 Disease of stomach and duodenum, unspecified (principal); K22.6 Gastro-esophageal laceration-hemorrhage syndrome; A04.7 Enterocolitis due to Clostridium difficile; F41.9 Anxiety disorder, unspecified; I10 Essential (primary) hypertension; J44.9 Chronic obstructive pulmonary disease, unspecified; J84.10 Pulmonary fibrosis, unspecified; K58.9 Irritable bowel syndrome, unspecified; K86.1 Other chronic pancreatitis; Z87.11 Personal history of peptic ulcer disease; E53.8 Deficiency of other specified B group vitamins; Z90.710 Acquired absence of both cervix and uterus; Z90.49 Acquired absence of other specified parts of digestive tract; Z98.890 Other specified postprocedural states; Z90.721 Acquired absence of ovaries, unilateral; Z85.51 Personal history of malignant neoplasm of bladder; Z88.8 Allergy status to other drugs, medicaments and biological substances; Z91.041 Radiographic dye allergy status; Z79.899 Other long term (current) drug therapy
CPT/HCPCS: 36415; 71010; 80048; 81001; 82270; 82272; 82570; 83690; 83735; 84110; 84120; 84484; 85014; 85018; 85025; 85610; 85730; 86850; 86900; 86901; 96374; 96375; 96376; 99285; A9270-GY; C9113; G0378; J1170; J2405; J2550

== ENCOUNTER 2016-07-07 20:07 | Emergency (ER) | payer SELFPAY ==
[~2016-07-07 20:07] MED LIST changes: +IFEREX 150 PO
[2016-07-07 20:22] LABS: ASCORBIC ACID (UR NOT ORDER) NEG (NEG); BILIRUBIN, URINE NEGATIVE (NEG); ER URINALYSIS TAT 0 Hrs 09 Mins; KETONE, URINE TRACE MG/DL (NEG); LEUKOCYTE ESTERASE(NOT OR NEG (NEG); NITRITE (URINE) NEG (NEG); WBC (NOT ORDERED) (RFLEX) 3 (0-5)
[2016-07-07 20:44] LABS: AMPHETAMINES (NOT ORD) NEG (NEG); BARBITURATES (NOT ORDERED NEG (NEG); BENZODIAZEPINES (NOT ORD) NEG (NEG); CANNABINOIDS (THC) NEG (NEG); COCAINE (NOT ORDERED) NEG (NEG); OPIATES POS (NEG); PHENCYCLIDINE(PCP) NEG (NEG); TRICYCLICS NEG (NEG)
[2016-07-07] MEDS ORDERED: FERROUS SULF325 M1 PO (21:30)
[2016-07-07] MEDS ORDERED: CLARIT10 PO (21:33)
[2016-07-07 21:34] LABS: BASOPHILS 0.2 %; BASOPHILS ABSOLUTE 0.01 10/3/uL (0.0-0.16); EOSINOPHILS 2.5 %; EOSINOPHILS ABSOLUTE 0.13 10/3/uL (0.0-0.53); ER CBC TAT 0 Hrs 05 Mins; HEMOGLOBIN 10.3 g/dL (12.0-16.0); IMMATURE GRANULOCYTES 0.2 %; IMMATURE GRANULOCYTES ABSOLUTE 0.01 10/3/uL (0.0-0.11); LYMPHOCYTES ABSOLUTE 2.07 10/3/uL (0.67-4.30); MEAN CORPUSCULAR HEMOGLOB 27.2 pg (26.0-34.0); MEAN PLATELET VOLUME 8.9 fL (9.2-13.0); MONOCYTES 7.3 %; MONOCYTES ABSOLUTE 0.38 10/3/uL (0.21-1.20); NEUTROPHILS 49.8 %; NEUTROPHILS ABSOLUTE 2.58 10/3/uL (2.02-8.40); PLATELET COUNT 265 10/3/uL (150-400); RBC DISTRIBUTION WIDTH 13.5 % (12.0-16.0); RED CELL COUNT 3.79 10/6/uL (4.0-5.6); WHITE BLOOD CELLS 5.2 10/3/uL (4.5-10.5)
[2016-07-07 21:35] LABS: HEMATOCRIT 30.8 % (36.0-48.0); MANUAL DIFF NO %; MEAN CORPUS HGB CONC 33.4 g/dL (32.0-36.0); MEAN CORPUSCULAR VOLUME 81.3 fL (80-100)
[2016-07-07 21:49] LABS: A/G RATIO 1.1 (0.7-1.9); ALBUMIN 3.7 G/DL (3.5-5.0); CALCIUM, SERUM 8.9 MG/DL (8.5-10.4); CHLORIDE, SERUM 108 MMOL/L (96-112); CO2 (CARBON DIOXIDE) 23 MMOL/L (24-34); CREATININE 0.88 MG/DL (0.55-1.02); GFR AFRICAN AMERICAN 95 ML/MIN (>=60); GFR NON AFRICAN AMERICAN 82 ML/MIN (>=60); GLOBULIN 3.5 G/DL (2.5-4.1); GLUCOSE, SERUM 88 MG/DL (60-99); POTASSIUM, SERUM 3.9 MMOL/L (3.5-5.3); SGOT(AST) 13 U/L (5-40); SGPT(ALT) 10 U/L (5-65); SODIUM, SERUM 142 MMOL/L (135-148); TOTAL BILIRUBIN 0.2 MG/DL (0-1.2); TOTAL PROTEIN 7.2 G/DL (6.0-8.5)
[2016-07-07 21:51] LABS: ALKALINE PHOSPHATASE 80 U/L (45-117); BUN (BLOOD UREA NITROGEN) 16 MG/DL (6-23)
== END 2016-07-08 02:47 | disposition home or self-care (01) ==
LOC: ER 20:07
PROVIDERS: Emergency Medicine; Nurse Practitioner Acute Care
DX: E86.0 Dehydration (principal); F17.200 Nicotine dependence, unspecified, uncomplicated; I10 Essential (primary) hypertension; Z87.442 Personal history of urinary calculi; Z85.51 Personal history of malignant neoplasm of bladder; K21.9 Gastro-esophageal reflux disease without esophagitis; J44.9 Chronic obstructive pulmonary disease, unspecified; F41.9 Anxiety disorder, unspecified; Z91.041 Radiographic dye allergy status; Z88.6 Allergy status to analgesic agent; Z88.5 Allergy status to narcotic agent; Z79.899 Other long term (current) drug therapy
CPT/HCPCS: 80053; 80305; 81001; 83605; 83690; 85025; 87493; 87493-59; 93005; 96374; 96375; 99284; C9113; J1980; J2405; J2550